=== PATIENT | female | born 1985 | race Caucasian/White ===

== ENCOUNTER 2022-03-05 21:13 | Observation (INO) ==
--- NOTE | 2022-03-05 21:43 | Emergency Department Note ---
Impression & Plan Hand, foot and mouth disease (HFMD), Rash, Post-operative state ED Provider Note NAME: GENO VAUGHAN AGE: 36 SEX: F : 1985 ARRIVES VIA: Walk-In INFORMANT: Patient ED PROVIDER(S): Emre Milan DO CHIEF COMPLAINT: rash HPI: Patient is a 36-year-old female with breast cancer status postmastectomy on Wednesday bilaterally who presents ER for rash on her hands feet and around her mouth including her nose which started in the past 24 hours. She notes it is itchy and painful. She has been taking Benadryl with no improvement. Denies any headache or change in vision. No chest pain or shortness of breath. No nausea, vomiting, or diarrhea. No dysuria, urgency, or frequency. No drainage from the breast incisions. PAST MEDICAL HISTORY:See Below PAST SURGICAL HISTORY:See Below FAMILY HISTORY:See Below SOCIAL HISTORY:See Below HOME MEDICATIONS:See Below ALLERGIES:See Below VITALS:See Below PHYSICAL EXAMINATION: GENERAL: Sitting up in bed, alert, well appearing, well nourished, no distress, non-toxic EYE EXAM: normal conjunctiva. OROPHARYNX: no exudate, no erythema, lips, buccal mucosa, and tongue normal and mucous membranes are moist NECK: supple, no nuchal rigidity, no adenopathy, non-tender LUNGS: Clear to auscultation. Normal chest wall mechanics HEART: no murmurs, S1 normal and S2 normal ABDOMEN: abdomen soft, non-tender, normo-active bowel sounds, no masses, no rebound or guarding. BACK: Back is symmetrical on inspection and there is no deformity, no midline tenderness, no CVA tenderness. SKIN: Erythematous raised lesions on the hands feet periorally and the nose as well as the right side of the neck. Blanching. No petechiae. Small central areas intermittently thin vesicles UPPER EXTREMITIES: upper extremities are grossly normal. LOWER EXTREMITIES: No pitting edema. NEURO EXAM: Normal sensorium, cranial nerves II-XII grossly intact, normal speech, no gross weakness of arms, no gross weakness of legs. MEDICAL DECISION MAKING: Patient is a 36-year-old female with breast cancer status postmastectomy earlier this week the presents the ER for rash on hands feet and mouth. Rash is painful and blistering with some vesicles. IV was established blood work was obtained. Labs show leukopenia at 3000. No significant anemia. BMP along with LFTs bilirubin was unremarkable. COVID was negative. 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 They request that patient be transferred to [place]. I spoke with Dr. Cali. There is a 24-hour wait for a bed and consequently discussed with Nicci Colon for admission and further work-up. External records were reviewed. Her she did recommend antibiotics as well as steroids. Patient was given IV fluids. She is updated bedside. Admitted for further work-up. Triage Nursing notes reviewed. Limited review of prior medical records performed Vital Signs: reviewed and remarkable for HTN and tachy Differential diagnosis: Contact dermatitis, viral exanthem, urticaria, allergic reaction, Daniels- Fahad syndrome, toxic epidermal necrolysis, erythema multiforme, cellulitis, scabies, HSV, varicella, zoster, eczema, staph scalded skin syndrome, fungal infection, as well as other pathologies. ER treatment provided: See below Diagnostics interpreted by me include EKG and cardiac monitoring as listed below: -Cardiac Monitoring: An order was placed for continuous cardiac monitoring. The monitor shows a rate of 80 with sinus rhythm. -ECG: none -Laboratory studies:Interpreted by me as stated above in MDM and shown below. Imaging studies: Xrays: As interpreted by me:none CTs show: none Consultation(s): As described in MDM Procedures:none Critical Care: None Past Med/Surg History Medical History (Updated 03/06/22 @ 00:25 by Emre Milan DO) Routine general medical examination at a health care facility Vitamin D insufficiency Surgical History (Updated 03/06/22 @ 00:25 by Emre Milan DO) No pertinent past surgical history S/P dilation and curettage Family History Grandfather Myocardial infarction Grandmother Diabetes Ovarian cancer Myocardial infarction Aunt Colorectal cancer Denies family history of Prostate cancer Breast cancer Lung cancer Social History Smoking Status: Never smoker Hx Alcohol Use: Yes Hx Substance Use: No Preferred Language: [place] Communication Ability: Effective Visual Impairment: No Limitations 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 marital status: Current Living Situation: Spouse current occupational status: employed current occupation: [employer] Feels Safe at Home: Yes Childhood Exposure to Second-Hand Smoke: No Dental Care, Regularly: Yes Physical Activity Frequency: 3-4 Times per Week Seatbelt Use: always Sunscreen Use: Yes Allergies Allergies Allergy/AdvReac Type Severity Reaction Status Date / Time No Known Drug Allergies Allergy Unknown Unknown Verified 03/05/22 21:19 Home Meds Home Medications Medication Instructions Recorded Confirmed cholecalciferol (vitamin D3) 25 2,000 units PO DAILY 01/31/19 03/05/22 mcg (1,000 unit) capsule Results & Data (ED) Vital Signs Vital Signs - 24 hr 03/05/22 21:13 03/05/22 21:40 03/05/22 22:10 Temperature 36.5 C Temperature Source Temporal Artery Scan Pulse Rate 108 H 88 Respiratory Rate 16 11 L Respiratory Effort / Characteristics Non-Labored Spontaneous Respiratory Depth Normal Blood Pressure 153/100 H Blood Pressure Mean 117 Blood Pressure Position Sitting Pulse Oximetry 98 99 Oxygen Delivery Method Room Air Room Air Sepsis Recent Fever Within 48 Hours No Sepsis New/Unexplained Change in Mental Status N/A Sepsis Action Taken by Nursing No Action Required 03/05/22 22:20 03/05/22 22:30 03/05/22 22:40 Temperature Temperature Source Pulse Rate 87 88 92 H Respiratory Rate 18 19 22 Respiratory Effort / Characteristics Respiratory Depth Blood Pressure Blood Pressure Mean Blood Pressure Position Pulse Oximetry Oxygen Delivery Method Sepsis Recent Fever Within 48 Hours Sepsis New/Unexplained Change in Mental Status Sepsis Action Taken by Nursing 03/05/22 22:50 03/05/22 23:00 Temperature Temperature Source Pulse Rate 87 86 Respiratory Rate 22 18 Respiratory Effort / Characteristics Respiratory Depth Blood Pressure Blood Pressure Mean Blood Pressure Position Pulse Oximetry Oxygen Delivery Method Sepsis Recent Fever Within 48 Hours Sepsis New/Unexplained Change in Mental Status Sepsis Action Taken by Nursing Laboratory Data 03/05/22 21:55 03/05/22 21:55 Lab Results 03/05/22 03/05/22 Range/Units 21:55 21:55 WBC 3.28 L (4.8-10.8) K/ul RBC 3.93 (3.93-5.22) M/uL Hgb 12.0 (12.0-16.0) g/dl Hct 34.0 L (34.1-44.9) % MCV 86.5 (80.0-100.0) fL MCH 30.5 (25.0-34.0) pg MCHC 35.3 (32.0-36.0) g/dL RDW Std Deviation 43.0 (36.4-46.3) fL RDW Coeff of Edi 13.5 (11.5-14.5) % Plt Count 176 (130-400) K/uL MPV 9.3 L (9.4-12.3) fL Immature Gran % (Auto) 0.0 % Neut % (Auto) 52.5 % Lymph % (Auto) 29.9 % [place] % (Auto) 14.9 % Eos % (Auto) 1.8 % Baso % (Auto) 0.9 % Neut # (Auto) 1.72 (1.4-6.5) K/uL Lymph # (Auto) 0.98 L (1.2-3.4) K/uL [place] # (Auto) 0.49 (0.24-0.82) K/uL Eos # (Auto) 0.06 (0-0.50) K/uL Baso # (Auto) 0.03 (0-0.2) K/uL Immature Gran # (Auto) 0.00 (0.00-0.02) K/uL Sodium 138 (136-145) mmol/L Potassium 4.0 (3.5-5.1) mmol/L Chloride 105 (98-107) mmol/L Carbon Dioxide 26 (21-32) mmol/L Anion Gap 7 (3-11) BUN 8 (6-23) mg/dl Creatinine 0.49 L (0.6-1.2) mg/dl Est Cr Clr Drug Dosing 160.7 ml/min Est GFR ( Amer) 143.2 ml/min Est GFR (Non-Af Amer) 123.6 ml/min BUN/Creatinine Ratio 16.3 (10-20) Glucose 112 H (70-99(Fasting)) mg/dl Calcium 9.0 (8.5-10.1) mg/dl Total Bilirubin 0.4 (0.2-1.0) mg/dl AST 46 H (13-39) U/L ALT 42 (7-52) U/L Alkaline Phosphatase 85 (34-104) U/L Total Protein 6.7 (6.0-8.3) gm/dl Albumin 4.3 (3.4-5.0) gm/dl Globulin 2.4 L (2.5-4.0) gm/dl Albumin/Globulin Ratio 1.8 (0.9-2) Administered Medications Discontinued Medications Sodium Chloride (Nss 1000ml) 1,000 mls @ 999 mls/hr IV .Q1H1M ONE Stop: 03/05/22 23:12 Last Infusion: 03/05/22 23:50 Dose: 0 mls/hr Documented By: Admin: 03/05/22 22:33 Dose: 999 mls/hr Documented By: KAYLEE Ceftriaxone Sodium (Rocephin) 2,000 mg in 70 mls @ 140 mls/hr IV NOW STA Stop: 03/05/22 22:41 Last Infusion: 03/05/22 23:00 Dose: 0 mls/hr Documented By: Admin: 03/05/22 22:33 Dose: 140 mls/hr Documented By: KAYLEE Methylprednisolone (Methylprednisolone 125 Mg/2 Ml Vial) 60 mg IV NOW STA Stop: 03/05/22 21:59 Last Admin: 03/05/22 22:33 Dose: 60 mg Documented By: KAYLEE Morphine Sulfate (Morphine Sulfate 4 Mg/Ml 1 Ml Carp\Vial) 4 mg IV NOW STA Stop: 03/05/22 22:23 Last Admin: 03/05/22 22:41 Dose: 4 mg Documented By: KAYLEE Discharge Plan Visit Data Chief Complaint: Rash Stated Complaint: REF BY DOC, RASH ED Provider: Emre Milan Discharge Problem: Hand, foot and mouth disease (HFMD), Rash, Post-operative state Discharge Instructions Interventions: ED Discharge Assessment Last Done: 03/06/22 00:16
[2022-03-05] MEDS ORDERED: methylPREDNISolone 125 MG/2 ML VIAL IV STA (21:58)
[2022-03-05 22:02] LABS: Basophils # (auto) 0.03 K/uL (0-0.2); Basophils % (auto) 0.9 %; Eosinophils # (auto) 0.06 K/uL (0-0.50); Eosinophils % (auto) 1.8 %; Lymphocytes # (auto) 0.98 K/uL (1.2-3.4); Lymphocytes % (auto) 29.9 %; Mean Corpuscular Hemoglobin 30.5 pg (25.0-34.0); Mean Corpuscular Hgb Conc 35.3 g/dL (32.0-36.0); Mean Corpuscular Volume 86.5 fL (80.0-100.0); Mean Platelet Volume 9.3 fL (9.4-12.3); Monocytes # (auto) 0.49 K/uL (0.24-0.82); Monocytes % (auto) 14.9 %; Neutrophils # (auto) 1.72 K/uL (1.4-6.5); Neutrophils % (auto) 52.5 %; Platelet Count 176 K/uL (130-400); RDW Coefficient of Variation 13.5 % (11.5-14.5); Red Blood Count 3.93 M/uL (3.93-5.22); White Blood Count 3.28 K/ul (4.8-10.8)
[2022-03-05] MEDS ORDERED: SODIUM CHLORIDE 0.9% 1000ML 1,000 ML IV ONE (22:12)
[2022-03-05] MEDS ORDERED: cefTRIAXone SODIUM 2,000 MG/70 ML BAG IV STA (22:12)
[2022-03-05] MEDS ORDERED: MoRPHine SULFATE 4 MG/ML 1 ML CARP\\VIAL IV STA (22:22)
[2022-03-05 22:27] LABS: Albumin Globulin Ratio 1.8 (0.9-2); Albumin Level 4.3 gm/dl (3.4-5.0); BUN Creatinine Ratio 16.3 (10-20); Bilirubin,Total 0.4 mg/dl (0.2-1.0); Creatinine Clr Calc Pharmacy 160.7 ml/min; Est GFR (African American) 143.2 ml/min; Est GFR (Non-African American) 123.6 ml/min; Globulin 2.4 gm/dl (2.5-4.0); Total Protein 6.7 gm/dl (6.0-8.3)
--- NOTE | 2022-03-05 23:01 | History & Physical Report ---
Date of Service March 05, 2022 Assessment & Plan (1) Rash: Plan: 36yo female with history of invasive DCIS of the breast s/p chemotherapy presently on adjuvant Pembrolizumab s/p bilateral mastectomy performed at [facility] on 03/02/22 presents with one day of painful, itchy rash on her hands, feet and neck. Patient is afebrile, HD stable and non-toxic in appearance. No mucosal involvement. Labs with mild leukopenia WBC=3.28 with lymphopenia. AST mildly elevated at 46. Differential to include viral exanthem. Patient's son and mother recently with diarrheal illness. Must consider immune-mediated rash in patient on Keytruda. She is non-toxic in appearance. No peripheral eosinophilia. No mucosal involvement. No skin sloughing. Mild elevation of AST. -Admit to medical -Monitor areas of rash -Check CBC with differential in AM to assess for eosinophilia -Check LFTs to monitor for liver potential liver involvement -Patient received Solumedrol 60mg IV in the ER. Will continue Prednisone 80mg po daily for now (1-2mg/kg for possible immune-mediated skin eruption) -Topical hydrocortisone 0.2% BID -Topical Lidocaine for symptomatic relief -Ceftriaxone given. Will continue on Keflex. -Pain control with Tylenol, OxyIR PRN Case was discussed between the ER attending and Oncology exploration driller at [facility]. Oncologist wants patient to come to [place] for further evaluation. Unfortunately, no beds are available at this time. Discussed this with patient. Will see how she is doing in the morning. If she remains HD stable, non-toxic with minimal progression could consider discharge so [place] [facility] [place] hospital arranged transport/ambulance. (2) Triple negative breast cancer: Plan: S/p mastectomy on 03/02/22. Patient follows with Oncology at [facility] -Possible transfer (3) Post-operative state: Plan: Patient overall doing well. Pain is well controlled. Drains in place -Pain control with Tylenol, OxyIR PRN -Monitor drain output F/E/N -Heplock. Electroltyes WNL. 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 She has completed chemotherapy with carboplatin/paclitaxel/pembrolizumab on 02/14/22 and is presently on adjuvant Pembrolizumab q 3 weeks. Patient had bilateral mastectomy with left sentinel node biopsy performed at [facility] on 03/02/22. Her surgery was well tolerated and she feels that she has been doing well overall post- operatively. Her drains are still in place and she has been monitoring the output. She presents today with an itchy, painful rash that began around 23:00 on 03/04/22. She noted small bumps and pustules around her mouth and on her hands first which then progressed to involve her feet, posterior neck as well as some spots on her abdomen. She states she was unable to sleep due to the discomfort. She has been taking Benadryl and using topical Cortisone with no improvement. She contacted the on-call provider this evening and was directed to the ER. She denies fever, chills, body aches. Denies chest pain, cough, SOB, abdominal pain, nausea, vomiting, diarrhea or constipation. No changes in her medications. No new detergents/soaps/lotions/etc. She does not have mucosal involvement - specifically denies oral lesions, genital lesions or ocular involvement. She did have sick contacts with her son and mother having diarrhea illnesses last week. In the ER she is afebrile, HD stable and non-toxic in appearance. ER Course: Solumedrol 60mg IV, NSS x 1L, Ceftriaxone 2gm, Morphine 4mg IV, Oxycodone 5mg, Lidocaine topical Allergies Allergy/AdvReac Type Severity Reaction Status Date / Time No Known Drug Allergies Allergy Unknown Unknown Verified 03/05/22 21:19 Home Medications Medication Instructions Recorded Confirmed Type cholecalciferol (vitamin D3) 25 2,000 units PO DAILY 01/31/19 03/05/22 History mcg (1,000 unit) capsule Past Med/Surg History Medical History Triple negative breast cancer Vitamin D insufficiency Surgical History History of mastectomy S/P dilation and curettage Family History Grandfather Myocardial infarction Grandmother Diabetes Ovarian cancer Myocardial infarction Aunt Colorectal cancer Denies family history of Prostate cancer Breast cancer Lung cancer Social History Smoking Status: Never smoker Second Hand Exposure: No; Do You Dip or Chew Tobacco: No; Hx Alcohol Use: Yes Alcohol type: wine Hx Substance Use: No Preferred Language: Persian Communication Ability: Effective Visual Impairment: No Limitations Hearing Ability: Normal 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 Beliefs That Will Affect Care: None marital status: Current Living Situation: Family current occupational status: employed current occupation: [employer] Other Information That Helps Us Care for You: No Feels Safe at Home: Yes Safety Concerns: Feels Safe At This Time Childhood Exposure to Second-Hand Smoke: No Dental Care, Regularly: Yes Physical Activity Frequency: 3-4 Times per Week Seatbelt Use: always Sunscreen Use: Yes Assistive Devices: None Review of Systems Review of Systems: All systems reviewed & are unremarkable except as noted in HPI & below Physical Exam Physical Exam: General: patient resting comfortably, NAD, non-toxic in appearance, AA&O x 4 Skin: warm, dry, erythematous, blanching rash noted on dorsal and palmar surfaces of hands, posterior neck and perioral region. Several pustules and blisters noted. No petechiae. HEENT: NC/AT, PERRL, EOMI, anicteric sclera, conjunctiva without injection, external ear normal to inspection and nontender, nares patent, moist mucus membranes, dentition intact, no oropharyngeal lesions, neck supple, trachea midline, no LAD, no thyromegaly, no JVD Heart: +S1/S2, regular, no m/r/g Lungs: equal air entry bilaterally, no rales/rhonchi/wheezes Abd: +BS, soft, NT/ND, no masses/organomegaly/ascites, binder in place, drains in place with minimal serosanguinous output Ext: warm, 2+ pulses in UE/LE bilaterally, no clubbing/cyanosis or edema Neuro: nonfocal, patient AA&O x 4, speech intact, no facial droop, moving all extremities on command with equal strength 5/5 Results & Data Results & Data ([facility]) Vital Signs (Past 12 Hours) Vital Signs Temp Pulse Resp BP Pulse Ox O2 Del Method 03/05/22 21:13 36.5 C 108 H 16 153/100 H 98 Room Air Laboratory Results Laboratory Results WBC 3.28 K/ul (4.8-10.8) L 03/05/22 21:55 RBC 3.93 M/uL (3.93-5.22) 03/05/22 21:55 Hgb 12.0 g/dl (12.0-16.0) 03/05/22 21:55 Hct 34.0 % (34.1-44.9) L 03/05/22 21:55 MCV 86.5 fL (80.0-100.0) 03/05/22 21:55 MCH 30.5 pg (25.0-34.0) 03/05/22 21: MCHC 35.3 g/dL (32.0-36.0) 03/05/22 21:55 RDW Std Deviation 43.0 fL (36.4-46.3) 03/05/22 21: RDW Coeff of Edi 13.5 % (11.5-14.5) 03/05/22 21: Plt Count 176 K/uL (130-400) 03/05/22 21:55 MPV 9.3 fL (9.4-12.3) L 03/05/22 21:55 Immature Gran % (Auto) 0.0 % 03/05/22 21: Neut % (Auto) 52.5 % 03/05/22 21:55 Lymph % (Auto) 29.9 % 03/05/22 21:55 [place] % (Auto) 14.9 % 03/05/22 21:55 Eos % (Auto) 1.8 % 03/05/22 21: Baso % (Auto) 0.9 % 03/05/22 21:55 Neut # (Auto) 1.72 K/uL (1.4-6.5) 03/05/22 21:55 Lymph # (Auto) 0.98 K/uL (1.2-3.4) L 03/05/22 21:55 [place] # (Auto) 0.49 K/uL (0.24-0.82) 03/05/22 21:55 Eos # (Auto) 0.06 K/uL (0-0.50) 03/05/22 21:55 Baso # (Auto) 0.03 K/uL (0-0.2) 03/05/22 21:55 Immature Gran # (Auto) 0.00 K/uL (0.00-0.02) 03/05/22 21:55 Sodium 138 mmol/L (136-145) 03/05/22 21:55 Potassium 4.0 mmol/L (3.5-5.1) 03/05/22 21:55 Chloride 105 mmol/L (98-107) 03/05/22 21:55 Carbon Dioxide 26 mmol/L (21-32) 03/05/22 21:55 Anion Gap 7 (3-11) 03/05/22 21:55 BUN 8 mg/dl (6-23) 03/05/22 21:55 Creatinine 0.49 mg/dl (0.6-1.2) L 03/05/22 21:55 Est Cr Clr Drug Dosing 160.7 ml/min 03/05/22 21:55 Est GFR ( Amer) 143.2 ml/min 03/05/22 21:55 Est GFR (Non-Af Amer) 123.6 ml/min 03/05/22 21:55 BUN/Creatinine Ratio 16.3 (10-20) 03/05/22 21:55 Glucose 112 mg/dl (70-99(Fasting)) H 03/05/22 21:55 Calcium 9.0 mg/dl (8.5-10.1) 03/05/22 21:55 Total Bilirubin 0.4 mg/dl (0.2-1.0) 03/05/22 21:55 AST 46 U/L (13-39) H 03/05/22 21:55 ALT 42 U/L (7-52) 03/05/22 21:55 Alkaline Phosphatase 85 U/L (34-104) 03/05/22 21:55 Total Protein 6.7 gm/dl (6.0-8.3) 03/05/22 21:55 Albumin 4.3 gm/dl (3.4-5.0) 03/05/22 21:55 Globulin 2.4 gm/dl (2.5-4.0) L 03/05/22 21:55 Albumin/Globulin Ratio 1.8 (0.9-2) 03/05/22 21:55 SARS-CoV-2, RNA, NAAT NEGATIVE (NEGATIVE) 03/05/22 23:40 PG Care Time/CCT Total # of Minutes Spent Total Time Spent with Patient: Total time spent is greater than 50% in coordination of care (as documented) at patient's floor/unit and/or counseling patient: Coding Level of Care Code 30359 INT INP/OBS CARE MIN Diagnoses Rash R21 Triple negative breast cancer C50.919 Post-operative state Z98.890
[2022-03-06] MEDS ORDERED: ACETAMINOPHEN 325 MG TAB PO PRN (00:16)
[2022-03-06] MEDS ORDERED: LIDOCAINE 5% OINT 30 GM TUBE EXT PRN ×2 (00:16)
[2022-03-06] MEDS ORDERED: oxyCODONE HCL IR 5 MG TAB (IMMEDIATE RELEASE) PO PRN (00:16)
[2022-03-06] MEDS ORDERED: diphenhydrAMINE 50 MG/ML VIAL IV PRN (02:01)
[2022-03-06] MEDS ORDERED: KETOROLAC TROMETHAMINE 15 MG/ML VIAL IV ONE (02:01)
[2022-03-06] MEDS ORDERED: KETOROLAC TROMETHAMINE 15 MG/ML VIAL IV PRN (02:06)
[2022-03-06] MEDS: HYDROCORTISONE VAL 0.2% CRM 15GM TUBE EXT SCH ×2 (02:20→08:13)
[2022-03-06 06:14] LABS: Albumin Level 3.9 gm/dl (3.4-5.0); BUN Creatinine Ratio 13.7 (10-20); Bilirubin Direct 0.1 mg/dl (0-0.2); Bilirubin,Total 0.3 mg/dl (0.2-1.0); Calcium 9.2 mg/dl (8.5-10.1); Creatinine Clr Calc Pharmacy 154.4 ml/min; Est GFR (African American) 141.4 ml/min; Potassium 4.5 mmol/L (3.5-5.1); Total Protein 6.5 gm/dl (6.0-8.3)
[2022-03-06] MEDS: cephALEXin 500 MG CAP PO SCH ×2 (08:55→14:04)
[2022-03-06] MEDS ORDERED: predniSONE 20 MG TAB PO SCH ×2 (09:00)
--- NOTE | 2022-03-06 14:23 | Discharge Summary ---
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 She has completed chemotherapy with carboplatin/paclitaxel/pembrolizumab on 02/14/22 and is presently on adjuvant Pembrolizumab q 3 weeks. Patient had bilateral mastectomy with left sentinel node biopsy performed at [facility] on 03/02/22. Her surgery was well tolerated and she feels that she has been doing well overall post- operatively. Her drains are still in place and she has been monitoring the output. She presents today with an itchy, painful rash that began around 23:00 on 03/04/22. She noted small bumps and pustules around her mouth and on her hands first which then progressed to involve her feet, posterior neck as well as some spots on her abdomen. She states she was unable to sleep due to the discomfort. She has been taking Benadryl and using topical Cortisone with no improvement. She contacted the on-call provider this evening and was directed to the ER. She denies fever, chills, body aches. Denies chest pain, cough, SOB, abdominal pain, nausea, vomiting, diarrhea or constipation. No changes in her medications. No new detergents/soaps/lotions/etc. She does not have mucosal involvement - specifically denies oral lesions, genital lesions or ocular involvement. She did have sick contacts with her son and mother having diarrhea illnesses last week. In the ER she is afebrile, HD stable and non-toxic in appearance. ER Course: Solumedrol 60mg IV, NSS x 1L, Ceftriaxone 2gm, Morphine 4mg IV, Oxycodone 5mg, Lidocaine topical Principal Diagnosis Hand Foot and Mouth Disease Discharge Exam Vitals reviewed Gen: [AAOx3, NAD, thin, with alopecia] HEENT: [anicteric sclerae, EOMI, OP clear, no oral lesions] CV: [RRR no mgr nl S1S2, chest with bilat mastectomy scars with incisions healing, ZEE drains in place with serosang fluid Pulm: [CTAB no wcr] Ext: [no edema except mild in fingers Skin: perioral region, hands, feet, buttocks, and a few scattered erythematous maculopapular and some vesicular lesions Neuro: [full strength throughout] Discharge Data Allergies Allergy/AdvReac Type Severity Reaction Status Date / Time No Known Drug Allergies Allergy Unknown Unknown Verified 03/05/22 21:19 Consultations 03/05/22 22:40 ED Decision to Admit Stat 03/06/22 09:58 Consult Allergy / Immunology Routine Hospital Course (1) Rash: 36yo female with history of invasive DCIS of the breast s/p chemotherapy presently on adjuvant Pembrolizumab s/p bilateral mastectomy performed at [facility] on 03/02/22 presents with one day of painful, itchy rash on her hands, feet and neck. Patient is afebrile, HD stable and non-toxic in appearance. No mucosal involvement. Labs with mild leukopenia WBC=3.28 with lymphopenia, no eosisnophilia. AST mildly elevated at 46. Differential to include viral exanthem. Patient's son and mother recently with diarrheal illness, fever, and now mom with rash on her hands, son with perioral rash and a lesion inside his mouth that is painful. Most liekly consistent with Hand Foot and Mouth disease-son is in daycare. Usually [place]xs[place]ie virus and self limited Was given symptomatic treatment here with prednisone, benadryl, oxycodone, toradol and topical HC cream with great relief Pt reports looking back, she had some night sweats last week prior to her mastectomy which was unusual for her and likely was low grade fevers which would be consistent with prodrome of HFMD Asked Allergy/Immunology to see her given must consider immune-mediated rash in patient on Keytruda. 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 Patient follows with Oncology at [facility] f/u with Breast Surgeon next week as scheduled (3) Post-operative state: Patient overall doing well. Pain is well controlled. Drains in place pain control Plan Dispo-dc to home Care d/w Allergy/Immunology Total Time Total Time Spent Total Time Spent (In Minutes): 35 min Discharge Plan Discharge Items Patient Disposition: Home - Self-Care Reason For Visit: RASH Discharge Diagnosis: Hand Foot and Mouth Disease Condition on Discharge: Fair Activity: Resume your previous activity Non-emergency contact: Primary Care Provider and Oncologist Call non-emergency contact if: you have any medication questions and your symptoms worsen Follow-up/Referrals: Susan Beltran MD [Primary Care Provider] - Diet: Regular Addtl Attending Provider Instructions: You can use ibuprofen or tylenol as needed for pain from your rash. This should resolve on its own but may take a week or so. You can use the topical hydrocortisone or even just topical vaseline on the rash for symptomatic relief (as I discussed with Dr. Moctezuma). As we do not suspect this rash is from the Keytruda, there is no need to prescribe stronger steroid ointments as he previously discussed with you. You can also take hydroxyzine as needed by mouth for itching. Please follow up with your Oncologist at [place] to see if they would like to see you sooner than your next appointment. Best wishes to you on your recovery! -Sowmya Mccollum M.D. Pending Studies at Discharge: No Stand-Alone Forms: [facility] Medications and DC Order Prescriptions: New hydrocortisone valerate 0.2 % Cream 1 applic EXT BID PRN (Reason: itching) 7 Days Qty: 45 0RF Rx Instructions: Apply to areas of rash ibuprofen 200 mg capsule 600 mg PO Q6H PRN (Reason: pain) Qty: 30 0RF Rx Instructions: OTC hydroxyzine HCl 25 mg tablet 25 mg PO Q8H PRN (Reason: itching) Qty: 20 0RF acetaminophen 325 mg Tablet 650 mg PO Q4H PRN (Reason: pain) Qty: 30 0RF Rx Instructions: OTC Continued cholecalciferol (vitamin D3) 25 mcg (1,000 unit) capsule 2,000 units PO DAILY Discharge Orders: Discharge Order (Routine); Ordered 03/06/22 Ordered By: Sowmya Mccollum Admission Data Admit Date/Time: 03/05/22 23:01 Attending Provider: Sowmya Mccollum Admit Provider: Sunshine Colon Primary Care Provider: Susan Beltran V. Other Providers: Sunshine Colon ; Klever Moctezuma Coding Level of Care Code HOSP INP/OBS DISCH >30 MIN Diagnoses Rash R21 Triple negative breast cancer C50.919 Post-operative state Z98.890
--- NOTE | 2022-03-06 16:57 | Allergy & Immunology Consult ---
Date of Consultation March 06, 2022 Assessment & Plan (1) Hand, foot and mouth disease (HFMD): Patient's history of sick contacts with similar rash, distribution of rash on hands feet and mouth, lesions on both the palms and back of the hand, soles and back of the feet are all compatible with yyhg-sdnj-hig-mouth disease. At this point my recommendation would be symptomatic management. We can treat the itching with hydroxyzine as needed. I recommend topical emollients like zinc oxide or petroleum jelly to the lesions. We did also discussed that differential includes bacterial infection, drug reaction. Her CBC was unremarkable without any elevation of white counts, and she has not had any fevers or other concerning features. The incision sites of her mastectomy appear to be healing well without any infection. The drain sites show serosanguinous fluid. At this point the concern for infection is very low. pembrolizumabis associated with many different types of rashes, but it is pointed did not feel that the timing is concerning for this. There is no evidence of serious hypersensitivity and the date of confusion would not be compatible with an allergic response to this. Minutes spent on pre-visit items: 5 Minutes spent during visit: 22 Minutes spent post-visit: 5 Total Minutes spent: 32 History of Present Illness Attending Physician: Sowmya Mccollum MD History of Present Illness This is a 36-year-old female who presents with a 2- day history of a rash that occurs around her mouth, on both palms and dorsum of her hands, top of the feet and her soles. When the rash first started it was itchy, slightly painful. It worsened over the past 2 days and overnight has been stable. Patient has a history of breast cancer and had bilateral mastectomy performed on 03/02/2022. This went well and there were no rashes or complications associate with surgery. She also has been getting chemo with carboplatin/paclitaxel/pembrolizumab, last infusion on 02/14/22. This went well without any rashes or complications. She does mention that in September 2021 she received an infusion of pembrolizumab and had a photosensitive rash that lasted for day or 2 and then went away. Otherwise no other problems. She has not had any fevers or chills. She has had sick contacts. Her mother developed a similar rash on her hands. She also has a 4-year-old son who com plain about sores in the mouth. She believes that there have been other children at school who have developed a rash on the hands and feet. In emergency room the patient received a dose of ceftriaxone, Solu-Medrol and pain medications. It is unclear whether these helped significantly. At home she had tried using hydrocortisone and Aquaphor. Allergies Allergy/AdvReac Type Severity Reaction Status Date / Time No Known Drug Allergies Allergy Unknown Unknown Verified 03/05/22 21:19 Home Medications Medication Instructions Recorded Confirmed Type cholecalciferol (vitamin D3) 25 2,000 units PO DAILY 01/31/19 03/05/22 History mcg (1,000 unit) capsule acetaminophen 325 mg tablet 650 mg PO Q4H PRN pain #30 tabs 03/06/22 Rx hydrocortisone valerate 0.2 % 1 applic EXT BID PRN itching 1 03/06/22 Rx topical cream week #45 grams hydroxyzine HCl 25 mg tablet 25 mg PO Q8H PRN itching #20 tabs 03/06/22 Rx ibuprofen 200 mg capsule 600 mg PO Q6H PRN pain #30 caps 03/06/22 Rx Patient History Medical History Triple negative breast cancer Vitamin D insufficiency Surgical History History of mastectomy S/P dilation and curettage Family History Grandfather Myocardial infarction Grandmother Diabetes Ovarian cancer Myocardial infarction Aunt Colorectal cancer Denies family history of Prostate cancer Breast cancer Lung cancer Social History Smoking Status: Never smoker Second Hand Exposure: No; Hx Alcohol Use: Yes Alcohol type: wine Hx Substance Use: No Preferred Language: Divehi Communication Ability: Effective Visual Impairment: No Limitations Hearing Ability: Normal [employer] Required: No Beliefs That Will Affect Care: None marital status: Current Living Situation: Family current occupational status: employed current occupation: [employer] Feels Safe at Home: Yes Childhood Exposure to Second-Hand Smoke: No Dental Care, Regularly: Yes Physical Activity Frequency: 3-4 Times per Week Seatbelt Use: always Sunscreen Use: Yes Assistive Devices: None Review of Systems Constitutional: as per Subjective / HPI Eyes: as per Subjective / HPI Ear, Nose, Mouth, Throat: as per Subjective / HPI Respiratory: as per Subjective / HPI Cardiovascular: as per Subjective / HPI Gastrointestinal: as per Subjective / HPI Genitourinary: as per Subjective / HPI Musculoskeletal: as per Subjective / HPI Integumentary: as per Subjective / HPI Neurologic: as per Subjective / HPI Psychiatric: as per Subjective / HPI Endocrine: as per Subjective / HPI Hematologic / Lymphatic: as per Subjective / HPI Allergy / Immunological: as per Subjective / HPI Physical Exam Constitutional: WD/WN, vitals as above Eyes: no conjunctival abnormality and sclerae not anicteric ENMT: external ear and nose normal, oropharynx normal Neck: trachea midline Respiratory: normal respiratory effort and able to speak in complete sentences; does not use accessory muscles Musculoskeletal: Head/Neck/Chest: head atraumatic Gait: normal gait Skin: no rashes and no lesions Psychiatric: A+Ox3, euthymic affect Results & Data ([facility]) Vital Signs (Past 12 Hours) Vital Signs Temp Pulse Pulse Resp BP BP Pulse Ox 03/06/22 14:39 36.7 C 71 18 129/72 97 03/06/22 08:20 75 20 129/72 100 03/06/22 08:27 36.7 C 71 18 129/72 97 03/06/22 06:00 65 17 03/06/22 05:30 91 H 24 03/06/22 05:00 68 24 O2 Del Method 03/06/22 14:39 03/06/22 08:20 Room Air 03/06/22 08:27 Room Air 03/06/22 06:00 03/06/22 05:30 03/06/22 05:00 Coding Level of Care Code OFFICE CONSULT LVL 3, 30 MIN Diagnoses Hand, foot and mouth disease (HFMD) B08.4
== END 2022-03-06 15:00 | disposition home or self-care (01) ==
LOC: EDINP 21:13 → ED 21:13 → SUATTDRO 23:01 → EDINP 03-06 00:16